=== PATIENT | female | born 1985 | race Two or more races ===

== ENCOUNTER 2016-05-06 08:57 | Emergency (ER) | payer SELFPAY ==
[2016-05-06 10:00] VITALS: BP 131/73
--- NOTE | 2016-05-06 11:17 | UC ---
Back Pain HPI - HPI Summary HPI Summary: The patient comes in today for: 1. Lower back pain: Onset: Yesterday. Palliative/provocative: Movement makes it worse. Sitting still is better than moving. Quality: [place]: Lower back with radiation down both legs. Severity: 10 though she appears more like 06/21 Time: Constant. Associated symptoms: Event: She was going down stairs yesterday by herself and suddenly experienced lower back pain. Then her legs became weak. She was alone at the time. But, she is staying at her boss's house. Her boss came to see what happened (she heard the noise). When the weakness started, she "tripped down" the "3-4 stairs." She states that "tripping down" the stairs means that she was still on her legs, but she had to rely on the stair railing. There were crutches at the bottom of the stairs. Her boss at that time helped her get on crutches. She is not using them now, but using her as a crutch. This happened about 9 AM. For the rest of the day, she got into a car and drove to her [facility]. She was not able to drive very far without having pain and numbness. When she pulled off the road, she would "adjust" herself and eventually the numbness/pain would go away. This happened x 4. She got to her [facility] appointment. The [facility] saw her and ordered lower back x-rays and a prescription for Motrin 800 mg. The [facility] provider told her to take her Soma which the patient at home. She eventually got back to her car. She was taken [place] [facility] [place]. She had the x-rays done. She got her Rx. She states at this time, she was feeling "much better." She has been resting at home ever since. But, she states that she can sit our lay down or turn without help. Weakness/numbness: She states that she will feel "spasms and weakness." She denies any numbness at this time. Unexpected weight loss: None Bowel/bladder incontinence: None. Fevers: None. 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 She went to help a customer. A mother got behind her and the patient fell backwards over them. She ended up on the floor. She got up to help the customer. She went back to work. She has suffered back pain since then. She has only seen a chiropractor for this. Her PCP (Dr. Alcala) does not take workmen's compensation. The patient ended up seeing a chiropractor which initially helped , but she reached the point that workmen's compensation no longer will pay. And that is why she is here. She has taken diclofenac sodium, naproxen, and Soma for this because of a supraspinatus tendonitis. These all helped. * - History of Current Complaint Chief Complaint: UCBackPain Stated Complaint: BACK PAIN Time Seen by Provider: 05/06/16 10:55 Hx Obtained From: Patient, Family/Outside Upholsterer Hx Last Menstrual Period: 04/30/16 ?: No - Allergies/Home Medications Allergies/Adverse Reactions: Allergies Allergy/AdvReac Type Severity Reaction Status Date / Time Phenazopyridine Allergy Intermediate "skin Verified 06/18/15 10:15 [From Pyridium] sloathing" Home Medications: Home Medications Carisoprodol TAB* [Soma TAB*] 350 mg PO Q6H PRN 05/06/16 [History Confirmed ] PMH/Surg Hx/FS Hx/Imm Hx Previously Healthy: No - Hematemasis (saw GI July 2015)-Gastritis put on PPI Endocrine History Of: Reports: Thyroid Disease - hashimotos Denies: Diabetes, Hyperthyroidism, Hypothyroidism, Dyslipidemia Cardiovascular History Of: Denies: Cardiac Disorders, Hypertension, Pacemaker/ICD, Myocardial Infarction , Congestive Heart Failure, Atrial Fibrillation, Deep Vein Thrombosis, Bleeding Disorders Respiratory History Of: Denies: COPD, Asthma, Bronchitis, Pneumonia, Pulmonary Embolism GI/ History Of: Reports: Gastroesophageal Reflux, Gastrointestinal Bleed - The patient ended up throwing up blood after being on diclofenac/naproxen. Denies: Ulcer, Gall Bladder Disease, Kidney Stones, Diverticulitis, Renal Disease, Urosepsis Neurological History Of: Denies: TIA, CVA, Dementia, Seizures, Migraine Psychological History Of: Denies: Anxiety, Depression, Bipolar Disorder, Schizophrenia, Post Traumatic Stress Disorder Cancer History Of: Denies: Lung Cancer, Colorectal Cancer, Breast Cancer, Prostate Cancer, Cervical Cancer Other History Of: Negative For: HIV, Hepatitis B, Hepatitis C, Anticoagulant Therapy - Surgical History Surgical History: Yes Surgery Procedure, Year, and Place: Tonsilectomy. [place] teeth extraction - Family History Known Family History: Positive: Cardiac Disease Negative: Hypertension, Diabetes - Social History Occupation: Employed Full-time Alcohol Use: Occasionally Substance Use Type: None Smoking Status (MU): Never Smoked Tobacco Have You Smoked in the Last Year: No Review of Systems Constitutional: Negative Skin: Negative Eyes: Negative ENT: Negative Respiratory: Negative Cardiovascular: Negative Gastrointestinal: Negative Genitourinary: Negative Musculoskeletal: Arthralgia, Myalgia All Other Systems Reviewed And Are Negative: Yes Physical Exam Triage Information Reviewed: Yes Appearance: Well-Appearing, No Pain Distress - She was laying on the cot in no distress., Other: - The patient was laying on her left side and when asked to get up to sit up on the side of the cot close to me, she had her lower her legs off the cot and help her sit up. Then, she wanted to walk around the cot to the side I needed her to be on. She had her arms over her and they took very small steps [id number] to my side of the cot. She wanted to sit on the cot elevated to slightly above her hip level instead of lower and then with her pushing with her arms scoot back onto the cot. She would have sudden onset of pain at times during movement. Vital Signs: Initial Vital Signs Temp 98.0 F 05/06/16 09:52 Pulse 74 05/06/16 09:52 Resp 18 05/06/16 09:52 BP 131/73 05/06/16 09:52 Pulse Ox 100 05/06/16 09:52 Vital Signs Reviewed: Yes Eyes: Positive: Conjunctiva Clear. Negative: Discharge ENT: Positive: Hearing grossly normal. Negative: Pharyngeal erythema, Nasal congestion, Nasal drainage, TM bulging, TM dull, TM red, Tonsillar swelling, Tonsillar exudate Dental: Negative: Gross Decay/Caries @, Dental Fracture @ Neck: Positive: Supple, Nontender, No Lymphadenopathy. Negative: Nuchal Rigidity Respiratory: Positive: Chest non-tender, Lungs clear, No respiratory distress, No accessory muscle use. Negative: Crackles, Wheezing Cardiovascular: Positive: RRR, No Murmur Abdomen Description: Positive: Nontender, No Organomegaly, Soft. Negative: Distended, Guarding Musculoskeletal: Positive: Strength Intact, ROM Intact, No Edema, Other: - Back : Light touch of her spinous processes of the lumbar region was associated with her worse pain. Palpation of the lumbar paraspinous musculature was tender , but not as painful as the light touch of her spinous processes. She had no SLR or either leg. The DTR of the patellar and Achilles reflexes were 2+/2 x 2. Neurological: Positive: Alert, Muscle Tone Normal Psychological: Positive: Age Appropriate Behavior, Consolable Skin: Negative: rashes, breakdown Diagnostics - Laboratory Diagnostic Studies Completed/Ordered: The patient had normal right and left leg x-rays as well as thoracic spine x-rays done recently through her [facility] provider. L/S x-rays were ordered, and eventually read as normal. - Radiology No standard instances Xray Interpretation: No Acute Changes Radiology Interpretation Completed By: Radiologist Re-Evaluation - Re-Evaluation First Eval Change: Improved - I walked into the room about 20 minutes ago to tell the patient and her that the radiologist was reading her x-ray. At that time, she was standing talking to her in no pain distress. Back Pain Course/Dx - Course Course Of Treatment: Patient was told of her treatment options. She has had problems with NSAIDS, for anti-inflammatory effect, so the patient was told about a short burst of steroids along with muscle relaxation. She agreed to try the prednisone and valium as a muscle relaxant. - Differential Dx/Diagnosis Provider Diagnoses: Lower back pain/spasm. Discharge - Discharge Plan Condition: Stable Disposition: HOME Patient Education Materials: Low Back Strain (ED) Referrals: Babar Limon MD [Primary Care Provider] - [facility] [Outside] - As Soon As Possible (Please call the physicians referral line to get a primary care provider who does accept workmen' s compensation. )
[2016-05-06] MEDS ORDERED: Diazepam SYRINGE* 5 MG/ML 2 ML SYRINGE (10 MG total) IM ONE (11:40)
--- NOTE | 2016-05-06 12:42 | RAD ---
INDICATION: Back pain COMPARISON: None TECHNIQUE: Standing PA, lateral, and oblique imaging was performed . FINDINGS: Bones: There are no acute bony findings. There are no significant osteoarthritic findings. There is minimal tilting of the pelvis. Alignment: Normal Disc spaces: The disc spaces are well-maintained Soft tissues: There are no soft tissue abnormalities. IMPRESSION: NO SIGNIFICANT OSTEOARTHRITIC CHANGES.
== END 2016-05-06 13:35 | disposition home or self-care (01) ==
LOC: UCEAST 08:57
DX: M62.830 Muscle spasm of back (principal); Z88.8 Allergy status to other drugs, medicaments and biological substances
CPT/HCPCS: 72110; 96372; 99211; G0463; J3360

== ENCOUNTER 2016-05-10 21:14 | Emergency (ER) | payer SELFPAY ==
[2016-05-10 21:22] VITALS: BP 132/89
[2016-05-10] MEDS ORDERED: predniSONE TAB* 20 MG PO ONE (22:49)
[2016-05-10] MEDS ORDERED: Diazepam TAB(*) 5 MG PO ONE (22:49)
[2016-05-10] MEDS ORDERED: Ketorolac INJ* 30 MG/ML 1 ML VIAL IM ONE (23:03)
--- NOTE | 2016-05-10 23:03 | ED ---
Back Pain - HPI Summary HPI Summary: Patient is a 30yo female with a CC of chronic back pain since last year after sustaining a fall at [employer], where she had worked. She endorses low back pain which has just gotten worse after going down the steps last week. She was seen at [facility] and given valium and prednisone stating this is what has worked for her in the past. She had lumbarsacral and thoracic xrays taken which were negative. She denies STEVENS or loss of bladder or bowel. She states her previous injury was covered by [employer] and she eventually improved and went back to work. She was standing on assessment, stating she was unable to lay down or sit. Provider approached the patient 10 minutes later who was then laying in the chair comfortable. She is requesting the same medication to which she was prescribed 4 days ago, noting that she "ran out." She states she has an appt in [place] for someone to evaluated her back pain in relation with WC. She has not had an MRI. - History of Current Complaint Chief Complaint: EDBackInjuryPain Stated Complaint: LOWER BACK PAIN Time Seen by Provider: 05/10/16 21:38 Hx Obtained From: Patient Hx Last Menstrual Period: 04/30/16 Onset/Duration: Gradual Onset, Worse Since - last week Onset/Duration: Still Present Timing: Constant Back Pain Location: Is Discrete @ - L1-S1 on midline palpation Severity Initially: Moderate Severity Currently: Severe Pain Intensity: 8 Pain Scale Used: 0-10 Numeric Character: Aching Aggravating Symptom(s): Movement, Bending, Walking Alleviating Symptom(s): Rest, Position Associated Signs And Symptoms: Positive: Weakness, Numbness - none currently Related History: Similar Episode Dx As - WC case after injuring her back last year - see HPI - Risk Factors AAA Risk Factors: Negative TAD Risk Factors: Negative Cauda Equina Risk Factors: Negative Epidural Abscess Risk Factors: Negative - Allergies/Home Medications Allergies/Adverse Reactions: Allergies Allergy/AdvReac Type Severity Reaction Status Date / Time Phenazopyridine Allergy Intermediate "skin Verified 06/18/15 10:15 [From Pyridium] sloathing" PMH/Surg Hx/FS Hx/Imm Hx Previously Healthy: Yes Endocrine/Hematology History: Reports: Hx Thyroid Disease - hashimotos Denies: Hx Anticoagulant Therapy, Hx Diabetes Cardiovascular History: Denies: Hx Congestive Heart Failure, Hx Deep Vein Thrombosis, Hx Hypertension , Hx Myocardial Infarction, Hx Pacemaker/ICD Respiratory History: Denies: Hx Asthma, Hx Chronic Obstructive Pulmonary Disease (COPD), Hx Lung Cancer, Hx Pneumonia, Hx Pulmonary Embolism GI History: Reports: Hx Gastrointestinal Bleed - The patient ended up throwing up blood after being on diclofenac/naproxen. Denies: Hx Gall Bladder Disease, Hx Ulcer, Hx Urosepsis History: Denies: Hx Kidney Stones, Hx Renal Disease Musculoskeletal History: Denies: Hx Rheumatoid Arthritis, Hx Osteoporosis Sensory History: Denies: Hx Hearing Aid Neurological History: Denies: Hx Dementia, Hx Migraine, Hx Seizures, Hx Transient Ischemic Attacks (TIA) Psychiatric History: Denies: Hx Anxiety, Hx Depression, Hx Panic Disorder, Hx Schizophrenia, Hx Bipolar Disorder - Surgical History Surgery Procedure, Year, and Place: Tonsilectomy. [place] teeth extraction Infectious Disease History: No Infectious Disease History: Denies: History Other Infectious Disease, Traveled Outside the [place] in Last 30 Days - Family History Known Family History: Positive: Unknown, Cardiac Disease Negative: Hypertension, Diabetes - Social History Occupation: Unemployed Lives: With Family Alcohol Use: None Substance Use Type: Reports: None Smoking Status (MU): Never Smoked Tobacco Do You Chew or Dip Tobacco: No Have You Chewed or Dipped Tobacco in the LAST YEAR: No Have You Smoked in the Last Year: No Review of Systems Constitutional: Negative ENT: Negative Cardiovascular: Negative Respiratory: Negative Positive: no symptoms reported, see HPI Positive: Arthralgia - low back pain Skin: Negative Positive: Paresthesia, Numbness - none currently, but has been endorsing numbness Psychological: Normal All Other Systems Reviewed And Are Negative: Yes - Comments Additional Review of Systems Comments: Thorough physical exam was performed, focusing on thoracic and lumbar special tests and ROM. Due to patient pain around injury, physical exam was limited. Limited ROM. Flip Test negative. Straight leg raise positive. Kernig test positive. Negative Babinksi. Hip flexion and extension, knee extension, dorsiflexion, great toe extension and plantar flexion intact. Rotating at hips limited d/t pain. Nerve roots L4-S2 reflexes intact. L1-S2 nerve root sensory intact. No saddle anesthesia. Gait normal. Physical Exam Vital Signs On Initial Exam: Initial Vitals Temp Pulse Resp BP Pulse Ox 97.8 F 110 16 132/89 98 05/10/16 21:15 05/10/16 21:15 05/10/16 21:15 05/10/16 21:15 05/10/16 21:15 Diagnostics - Vital Signs Vital Signs Temp Pulse Resp BP Pulse Ox 05/10/16 21:15 97.8 F 110 16 132/89 98 - Laboratory Lab Statement: Any lab studies that have been ordered have been reviewed, and results considered in the medical decision making process. Back Pain Course/Dx - Course Course Of Treatment: Patient to follow up with an maternal child nurse in 3 days. Encouraged Tylenol 650mg three times daily with meals for pain. Return precautions given. Educated patient regarding back injuries and healing time and the need for further imaging if discomfort is present for > 6 weeks. Patient encouraged not to take prednisone for long periods of time d/t side effects or valium d/t side effects. Provider will give 60mg IM toradol per patient request and prescription for valium and prednisone for 3 days. Will seek long-term provider tomorrow. - Diagnoses Differential Diagnosis/HQI/PQRI: Positive: Compressive Cord Syndrome, Herniated Disc, Strain, Sprain Provider Diagnoses: Chronic low back pain Images - Images Full Body (No Head): 1 - pain on palpation Discharge - Discharge Plan Condition: Stable Disposition: HOME Prescriptions: Diazepam TAB(*) [Valium TAB(*)] 5 mg PO Q6H PRN #10 tab MDD 4 PRN Reason: Pain Diclofenac 1% GEL (NF) [Voltaren 1% GEL (NF)] 1 applic TOPICAL QID #1 tube predniSONE TAB* [Deltasone TAB*] 40 mg PO DAILY #6 tab MDD 2 Patient Education Materials: Chronic Back Pain (ED) Referrals: Babar Limon MD [Primary Care Provider] - Additional Instructions: Discharge: Dx. Chronic Back Pain Valium: This medication is a muscle relaxant and can help relieve muscle spasms , muscle strain, or pain sensations. Valium can cause side effects that may impair your thinking or reactions. Be careful if you drive or do anything that requires you to be awake and alert. Avoid drinking alcohol, which can increase some of the side effects of Valium. Tylenol 650mg three times daily with meals for discomfort. Moist heat to the area for comfort. Warm showers or baths may improve symptoms. It is important to remain mobile as tolerated to prevent stiffening of the joints and delay healing. Follow up with your PCP. Please seek special medical attention from an orthopedic physician.
== END 2016-05-10 23:32 | disposition home or self-care (01) ==
LOC: ED 21:14
DX: M54.5 Low back pain (principal); G89.29 Other chronic pain; E06.3 Autoimmune thyroiditis
CPT/HCPCS: 99282; J1885; J7512